=== PATIENT | male | born 1985 | race Caucasian/White ===

== ENCOUNTER 2021-05-03 14:29 | Emergency (ER) | payer OTHER ==
[~2021-05-03] VITALS: Ht 177.8 cm; Wt 95.3 kg
[2021-05-03] MEDS ORDERED: LEXAPRO 10 MG T10 M2 PO (14:38)
[2021-05-03] MEDS ORDERED: XANAX 0.25 MG0.25 MG PO (14:39)
[2021-05-03 14:51] LABS: ABSOLUTE BASOPHILS 0.1 thou/uL (0.0-0.2); ABSOLUTE EOSINOPHILS 0.2 thou/uL (0.0-0.7); ABSOLUTE LYMPHOCYTES 1.9 thou/uL (0.8-5.3); ABSOLUTE MONOCYTES 0.8 thou/uL (0.0-1.2); ABSOLUTE NEUTROPHILS 4.5 thou/uL (1.6-8.1); BASOPHILS 1.2 %; EOSINOPHILS 2.3 %; HEMATOCRIT 41.8 % (42.0-52.0); HEMOGLOBIN 14.8 gm/dL (14.0-18.0); LYMPHOCYTES 25.4 %; MCH 32.5 pg (26.0-34.0); MCHC 35.4 g/dL (28.0-37.0); MCV 91.8 fL (80.0-100.0); MONOCYTES 10.4 %; MPV 7.2 fl. (7.2-11.1); NUCLEATED RBCS 0 /100WBC; PLATELET COUNT* 337 thou/uL (150-400); POLYS 60.7 %; RBC 4.55 mil/uL (4.50-6.00); RDW-CV 12.7 % (10.5-14.5); WBC 7.4 thou/uL (4.0-11.0)
[2021-05-03 15:01] LABS: CALCIUM 9.6 mg/dL (8.5-10.1); CREATININE 1.4 mg/dL (0.6-1.3); POTASSIUM 3.8 mmol/L (3.5-5.1)
[2021-05-03 15:02] LABS: URINE BILIRUBIN NEGATIVE (Negative); URINE BLOOD NEGATIVE (Negative); URINE CLARITY CLEAR; URINE COLOR YELLOW; URINE GLUCOSE-RANDOM NEGATIVE (Negative); URINE KETONES NEGATIVE (Negative); URINE LEUKOCYTES-REFLEX NEGATIVE (Negative); URINE NITRITE-REFLEX NEGATIVE (Negative); URINE PROTEIN NEGATIVE (Negative); URINE UROBILINOGEN 0.2 E.U./dl (0.2-1.0)
[2021-05-03 15:06] LABS: ALBUMIN 4.2 g/dL (3.4-5.0); ALCOHOL < 10 mg/dL (<10); SALICYLATE 3.4 mg/dL (2.8-20.0); TOTAL BILIRUBIN 0.3 mg/dL (<0.1-1.0); TOTAL PROTEIN 8.1 g/dL (6.4-8.2)
[2021-05-03 15:09] LABS: AMP/METHAMP POSITIVE (Negative); BARBITURATES Negative (Negative); BENZODIAZEPINES Negative (Negative); COCAINE Negative (Negative); METHADONE Negative (Negative); OPIATES Negative (Negative); PCP Negative (Negative); THC POSITIVE (Negative)
[2021-05-03 15:17] LABS: ACETAMINOPHEN < 2 ug/mL (10-30)
[2021-05-03 16:34] VITALS: BP 149/78
== END 2021-05-03 16:36 | disposition home or self-care (01) ==
LOC: M.ERS 14:29
PROVIDERS: Emergency Medicine
DX: F41.9 Anxiety disorder, unspecified (principal)

== ENCOUNTER 2021-08-01 12:05 | Emergency (ER) | payer OTHER ==
[~2021-08-01] VITALS: Ht 177.8 cm; Wt 81.7 kg
[~2021-08-01 12:05] MED LIST: LEXAPRO 10 MG T10 M2 PO; XANAX 0.25 MG0.25 MG PO
[2021-08-01] MEDS ORDERED: TRAMADOL 50 MG50 MG PO (12:38)
[2021-08-01 13:23] VITALS: BP 127/82
== END 2021-08-01 13:23 | disposition left against medical advice (07) ==
LOC: M.ERS 12:05
DX: T65.91XA Toxic effect of unspecified substance, accidental (unintentional), initial encounter (principal); Z53.21 Procedure and treatment not carried out due to patient leaving prior to being seen by health care provider